=== PATIENT | male | born 1965 | race Caucasian/White ===

== ENCOUNTER 2016-04-28 07:16 | Emergency (ER) | payer OTHER ==
[2016-04-28 07:41] VITALS: BP 125/83; PULSE 80; RESP 16; TEMP 99; O2SAT 97
[2016-04-28] MEDS ORDERED: LIDOCAINE 2% JELLY 5 ML TUBE ONE (08:22)
[2016-04-28] MEDS ORDERED: LIDOCAINE 2% JELLY 5 ML TUBE TP ONE (08:23)
--- NOTE | 2016-04-28 08:32 | UCPHY ---
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 He reports 2/10 discomfort associated with this with occasional mild blood. ROS: No fevers. No changes in bowel movements which tend to be loose for this patient with a history of Crohn's disease. No significant balm pain. 7 point ROS is otherwise negative Smoking Status: Never smoked Physical Exam: General Appearance: Alert, no distress. Eyes: Pupils equal and round no pallor or injection. ENT, Mouth: Mucous membranes moist. Respiratory: There are no retractions, lungs are clear to auscultation. Cardiovascular: Regular rate and rhythm. Gastrointestinal: Abdomen is soft and nontender, no masses, bowel sounds normal. Rectal: Perianal region is normal there is no external hemorrhoids. In the gluteal cleft fold there is a 3 x 3 cm area of superficial skin erosion, mild erythema and trace discharge with no underlying fluctuance significant warmth to touch. Neurological: Alert with no focal deficits Skin: Warm and dry, no rashes. Musculoskeletal: Neck is supple nontender. Extremities are symmetrical, full range of motion. Psychiatric: Mood and affect normal DIFFERENTIAL DIAGNOSIS: After history and physical exam differential diagnosis was considered for superficial skin ulcer, yeast skin infection, localized bacterial cellulitis Constitutional: Initial Vital Signs Temperature (C) 37.2 C 04/28/16 07:32 Heart Rate 80 04/28/16 07:32 Respiratory Rate 16 04/28/16 07:32 Blood Pressure 125/83 H 04/28/16 07:32 O2 Sat (%) 97 04/28/16 07:32 O2 Delivery Mode Room Air Allergies/Adverse Reactions: No Known Allergies Allergy (Unverified 01/01/16 11:21) Home Medications: Medication Instructions Recorded azaTHIOprine [Imuran 50 mg (*)] 01/01/16 Citalopram 04/28/16 MDM/Departure - MDM Medications Given: Discontinued Medications Lidocaine (Lidocaine 2% Jelly) 1 tho TP EDNOW ONE Stop: 04/28/16 08:24 Last Admin: 04/28/16 08:26 Dose: 1 tho ED Course/Re-evaluation: Wound cultures obtained. Wound care-the wound is cleaned. Will refer him to wound care. - Depart Disposition: Home, Routine, Self-Care Clinical Impression: Gluteal cleft wound Qualifiers: Encounter type: initial encounter Laterality: unspecified laterality Qualified Code(s): S31.809A - Unspecified open wound of unspecified buttock, initial encounter Condition: Good Instructions: Chronic Wounds (ED) Additional Instructions: Dx: chronic gluteal cleft wound Plan: Call the wound Care Clinic for [facility]-[phone] to arrange follow-up appointment. Their addresses is [address] [place] [address] Referrals: JOANNE ROSALES [Other] - As per Instructions - PQRS PQRS Measurement: NA
== END 2016-04-28 09:12 | disposition home or self-care (01) ==
LOC: CED 07:16
DX: S31.809A Unspecified open wound of unspecified buttock, initial encounter (principal); K50.90 Crohn's disease, unspecified, without complications
CPT/HCPCS: 99214-PO; G0463-PO